=== PATIENT | female | born 1945 | race Hispanic/Latino ===

== ENCOUNTER → 2018-02-16 09:17 | Outpatient (CLI) | payer MEDICARE, SELFPAY ==
[2018-02-18 14:51] LABS: Mumps Virus IgM Antibody <1:20 (<1:20)
== END ==
PROVIDERS: Family Provider Family Medicine; PCP Family Medicine; Visit Provider Physician Assistant
DX: R60.9 Edema, unspecified (principal)
CPT/HCPCS: 86735; 87798

== ENCOUNTER → 2018-04-20 17:19 | Outpatient (CLI) | payer MEDICARE, SELFPAY | PROVIDERS: PCP Family Medicine; Visit Provider Family Medicine | DX: T14.8XXA Other injury of unspecified body region, initial encounter (principal) | CPT/HCPCS: 87070; 87077; 87147; 87186; 87205 ==

== ENCOUNTER → 2018-04-25 08:55 | Outpatient (CLI) | payer MEDICARE, SELFPAY | PROVIDERS: PCP Family Medicine; Referring Provider Family Medicine; Visit Provider Family Medicine | DX: I87.2 Venous insufficiency (chronic) (peripheral) (principal); L97.811 Non-pressure chronic ulcer of other part of right lower leg limited to breakdown of skin; L03.115 Cellulitis of right lower limb | CPT/HCPCS: 99202; 99212; 99213 ==

== ENCOUNTER → 2018-05-02 09:40 | Outpatient (CLI) | payer MEDICARE, SELFPAY | PROVIDERS: PCP Family Medicine; Visit Provider Family Medicine | DX: I87.2 Venous insufficiency (chronic) (peripheral) (principal); L97.811 Non-pressure chronic ulcer of other part of right lower leg limited to breakdown of skin | CPT/HCPCS: 11042; 99213 ==

== ENCOUNTER → 2018-05-02 10:40 | Outpatient (CLI) | payer MEDICARE, SELFPAY ==
--- NOTE | 2018-05-02 | DI.CT.S_ITS ---
PROCEDURE: CT SOFT TISSUE NECK WO/W CON INDICATIONS: Chronic sialoadenitis TECHNIQUE: Before and after the administration of intravenous contrast, 2.0 mm axial sections acquired through the neck and down to the edgar. Additional 2.0 mm coronal and sagittal reformats were generated of the contrast enhanced images. For radiation dose reduction, the following was used: automated exposure control. COMPARISON: None. FINDINGS: Image quality: Excellent. Salivary glands: Parotid glands are symmetric in size. Parotid glands demonstrate mildly heterogeneous attenuation on precontrast images. On post contrast images, prominent enhancing vessels are noted bilaterally. No masses or stones are identified. The left submandibular gland appears slightly larger than the right submandibular gland, which might be normal asymmetry. Submandibular glands demonstrate homogeneous attenuation on precontrast images, and mildly heterogeneous enhancement on postcontrast images. There is a 2 mm calcification in the right tongue base (series 2 image 33), and a couple of 3-4 mm calcifications in the area of the left tongue base (series 2 image 29 and 32), which may represent submandibular duct stones. There is no significant inflammatory stranding of the submandibular glands. No masses or abnormalities deep to the skin marker over the area of concern. Thyroid: Parenchyma is normal in size and enhancement. Lymph nodes: No enlarged lymph nodes seen throughout the neck. Small normal-sized cervical lymph nodes are likely reactive. Vessels: Visualized vasculature appears patent. Neck spaces: The oropharynx, nasopharynx, and pharynx demonstrate no mucosal lesions. The vocal cords, false vocal cords, pyriform sinuses, epiglottis, vallecula, and tongue base all appear normal. Extramucosal spaces appear unremarkable. Miscellaneous: Mild interstitial thickening in lung apices bilaterally. There is a small area of groundglass infiltrate in the left upper lobe. Bones: No suspicious bony lesions. Degenerative changes are noted in cervical spine. There is grade 1 anterolisthesis of C4 on C5. Visualized sinuses and mastoids appear unremarkable. IMPRESSION: 1. No masses or abnormalities deep to the skin marker over the area of concern. 2. Possible submandibular duct stones bilaterally. No inflammatory stranding involving submandibular currently. 3. Mild, symmetrically heterogeneous attenuation of parotid glands with mildly increased vascularity. 4. Mild interstitial thickening in lung apices bilaterally. There is a small area of groundglass infiltrate in the left upper lobe compatible with mild pneumonitis with pneumonia. Dictated by: Doug Coleman M.D. on 05/02/2018 at 15:15 Approved by: Doug Coleman M.D. on 05/03/2018 at 8:46
[2018-05-02 11:12] LABS: BUN Creatinine Ratio 21.7 (6-22); Blood Urea Nitrogen 13 mg/dL (7-17); Estimated Glomerular Filt Rate > 60.0 mL/min (>60)
== END ==
PROVIDERS: PCP Family Medicine; Visit Provider Otolaryngology
DX: K11.23 Chronic sialoadenitis (principal); R07.0 Pain in throat; I87.2 Venous insufficiency (chronic) (peripheral); L97.811 Non-pressure chronic ulcer of other part of right lower leg limited to breakdown of skin
CPT/HCPCS: 11042; 36415; 70492; 82565; 84520; Q9967

== ENCOUNTER → 2018-05-09 08:29 | Outpatient (CLI) | payer MEDICARE, SELFPAY | PROVIDERS: PCP Family Medicine; Visit Provider Podiatrist Primary Podiatric Medicine | DX: I87.2 Venous insufficiency (chronic) (peripheral) (principal); L97.811 Non-pressure chronic ulcer of other part of right lower leg limited to breakdown of skin | CPT/HCPCS: 97597 ==

== ENCOUNTER → 2018-05-16 09:27 | Outpatient (CLI) | payer MEDICARE, SELFPAY | PROVIDERS: PCP Family Medicine; Visit Provider Family Medicine | DX: I87.2 Venous insufficiency (chronic) (peripheral) (principal); L97.812 Non-pressure chronic ulcer of other part of right lower leg with fat layer exposed; M79.604 Pain in right leg | CPT/HCPCS: 97597; 99213 ==

== ENCOUNTER → 2018-05-23 08:43 | Outpatient (CLI) | payer MEDICARE, SELFPAY | PROVIDERS: PCP Family Medicine; Visit Provider Podiatrist Primary Podiatric Medicine | DX: I87.2 Venous insufficiency (chronic) (peripheral) (principal); L97.811 Non-pressure chronic ulcer of other part of right lower leg limited to breakdown of skin; M79.604 Pain in right leg | CPT/HCPCS: 11042; 99213 ==

== ENCOUNTER → 2018-05-30 08:35 | Outpatient (CLI) | payer MEDICARE, SELFPAY | PROVIDERS: PCP Family Medicine; Visit Provider Podiatrist Primary Podiatric Medicine | DX: I87.311 Chronic venous hypertension (idiopathic) with ulcer of right lower extremity (principal); L97.811 Non-pressure chronic ulcer of other part of right lower leg limited to breakdown of skin | CPT/HCPCS: 15271; 99213; Q4196 ==

== ENCOUNTER → 2018-06-06 08:39 | Outpatient (CLI) | payer MEDICARE, SELFPAY | PROVIDERS: PCP Family Medicine; Visit Provider Podiatrist Primary Podiatric Medicine | DX: L97.909 Non-pressure chronic ulcer of unspecified part of unspecified lower leg with unspecified severity (principal); I73.9 Peripheral vascular disease, unspecified | CPT/HCPCS: 15271; 99213; 99214; Q4196 ==

== ENCOUNTER → 2018-06-13 08:15 | Outpatient (CLI) | payer MEDICARE, SELFPAY | PROVIDERS: PCP Family Medicine; Visit Provider Podiatrist Primary Podiatric Medicine | DX: E11.622 Type 2 diabetes mellitus with other skin ulcer (principal); L97.812 Non-pressure chronic ulcer of other part of right lower leg with fat layer exposed; M79.604 Pain in right leg | CPT/HCPCS: 15271; 99213; Q4196 ==

== ENCOUNTER → 2018-06-20 08:55 | Outpatient (CLI) | payer MEDICARE, SELFPAY | PROVIDERS: PCP Family Medicine; Visit Provider Podiatrist Primary Podiatric Medicine | DX: I87.2 Venous insufficiency (chronic) (peripheral) (principal); L97.812 Non-pressure chronic ulcer of other part of right lower leg with fat layer exposed; M79.661 Pain in right lower leg | CPT/HCPCS: 11042; 87070; 87075; 87077; 87147; 87186; 87205 ==

== ENCOUNTER → 2018-06-27 08:25 | Outpatient (CLI) | payer MEDICARE, SELFPAY | PROVIDERS: PCP Family Medicine; Visit Provider Podiatrist Primary Podiatric Medicine | DX: I87.2 Venous insufficiency (chronic) (peripheral) (principal); L97.811 Non-pressure chronic ulcer of other part of right lower leg limited to breakdown of skin; R60.9 Edema, unspecified; L08.89 Other specified local infections of the skin and subcutaneous tissue | CPT/HCPCS: 97597 ==

== ENCOUNTER → 2018-07-11 08:49 | Outpatient (CLI) | payer MEDICARE, SELFPAY | PROVIDERS: PCP Family Medicine; Visit Provider Podiatrist Primary Podiatric Medicine | DX: I87.2 Venous insufficiency (chronic) (peripheral) (principal); L97.811 Non-pressure chronic ulcer of other part of right lower leg limited to breakdown of skin; M79.604 Pain in right leg | CPT/HCPCS: 93922; 99213 ==

== ENCOUNTER → 2018-07-18 08:36 | Outpatient (CLI) | payer MEDICARE, SELFPAY | PROVIDERS: PCP Family Medicine; Visit Provider Podiatrist Primary Podiatric Medicine | DX: I87.2 Venous insufficiency (chronic) (peripheral) (principal); L97.812 Non-pressure chronic ulcer of other part of right lower leg with fat layer exposed; M79.604 Pain in right leg | CPT/HCPCS: 97597 ==

== ENCOUNTER → 2018-07-20 09:15 | Outpatient (CLI) | payer MEDICARE, SELFPAY | PROVIDERS: PCP Family Medicine; Visit Provider Family Medicine | DX: I87.2 Venous insufficiency (chronic) (peripheral) (principal); L97.812 Non-pressure chronic ulcer of other part of right lower leg with fat layer exposed | CPT/HCPCS: 29581 ==

== ENCOUNTER → 2018-07-25 09:06 | Outpatient (CLI) | payer MEDICARE, SELFPAY | PROVIDERS: PCP Family Medicine; Visit Provider Podiatrist Primary Podiatric Medicine | DX: I87.2 Venous insufficiency (chronic) (peripheral) (principal); L97.811 Non-pressure chronic ulcer of other part of right lower leg limited to breakdown of skin | CPT/HCPCS: 97597 ==

== ENCOUNTER → 2018-08-01 09:32 | Outpatient (CLI) | payer MEDICARE, SELFPAY | PROVIDERS: PCP Family Medicine; Visit Provider Podiatrist Primary Podiatric Medicine | DX: I87.2 Venous insufficiency (chronic) (peripheral) (principal); L97.812 Non-pressure chronic ulcer of other part of right lower leg with fat layer exposed | CPT/HCPCS: 97597 ==

== ENCOUNTER → 2018-08-15 09:35 | Outpatient (CLI) | payer MEDICARE, SELFPAY | PROVIDERS: PCP Family Medicine; Visit Provider Podiatrist Primary Podiatric Medicine | DX: Z48.817 Encounter for surgical aftercare following surgery on the skin and subcutaneous tissue (principal); I73.9 Peripheral vascular disease, unspecified | CPT/HCPCS: 99213 ==

== ENCOUNTER → 2021-09-13 08:00 | Outpatient (CLI) | payer MEDICARE, SELFPAY ==
[2021-09-13 09:28] LABS: Add Manual Diff / Slide Review NO; Basophils Absolute Auto 100 /uL (0-100); Basophils Percent Auto 1.2 % (0-2); Eosinophils Absolute Auto 100 /uL (0-450); Eosinophils Percent Auto 1.9 % (2-4); Hematocrit 41.6 % (36-46); Hemoglobin 13.8 g/dL (12.0-16.0); Lymphocytes Absolute Auto 1400 /uL (1100-4500); Mean Corpuscular HGB Conc 33.3 % (30-36); Mean Corpuscular Hemoglobin 29.4 PG (26-34); Mean Corpuscular Volume 88.2 fL (80-100); Monocytes Absolute Auto 300 /uL (0-900); Neutrophils Absolute Auto 2900 /uL (1500-7000); Neutrophils Percent Auto 59.9 % (50-75); Platelet Count 238 X10^3/uL (150-400); Red Blood Cell Count 4.71 X10^6/uL (4.0-5.2); Red Cell Distribution Width 14.3 % (11.6-14.8); White Blood Cell Count 4.8 X10^3/uL (4.5-11.0)
[2021-09-13 10:00] LABS: BUN Creatinine Ratio 16.4 (6-22); Blood Urea Nitrogen 12 mg/dL (7-17); Calcium 8.9 mg/dL (8.4-10.2); Carbon Dioxide 28 mmol/L (22-32); Chloride 104 mmol/L (98-107); Cholesterol 214 mg/dL (140-199); Estimated Glomerular Filt Rate > 60 mL/min (>60); Glucose 92 mg/dL (80-110); HDL Cholesterol 45 mg/dL (40-60); HEMOLYSIS < 15 (0-50); LDL Cholesterol Calculated 147 mg/dL (<100); Sodium 137 mmol/L (137-145); Triglycerides 110 mg/dL (35-150)
[2021-09-15 09:15] LABS: Fecal Immunochemical Test Negative (Negative)
== END ==
PROVIDERS: PCP Family Medicine; Referring Provider Family Medicine; Visit Provider Family Medicine
DX: Z13.220 Encounter for screening for lipoid disorders (principal); Z12.11 Encounter for screening for malignant neoplasm of colon
CPT/HCPCS: 36415; 80048; 80061; 82274; 85025

== ENCOUNTER → 2022-02-11 07:56 | Outpatient (CLI) | payer MEDICARE, SELFPAY ==
[2022-02-11 09:11] LABS: Cholesterol 183 mg/dL (140-199); HDL Cholesterol 46 mg/dL (40-60); LDL Cholesterol Calculated 104 mg/dL (<100); Triglycerides 163 mg/dL (35-150)
== END ==
PROVIDERS: PCP Family Medicine; Referring Provider Family Medicine; Visit Provider Family Medicine
DX: E78.00 Pure hypercholesterolemia, unspecified (principal)
CPT/HCPCS: 36415; 80061

== ENCOUNTER 2022-07-04 03:59 | Observation (INO) | payer MEDICARE, SELFPAY ==
--- NOTE | 2022-07-04 04:02 | DI.RAD.S_ITS ---
PROCEDURE: XR FOOT LT MIN 3V INDICATIONS: pain and swelling TECHNIQUE: Three views of the foot were acquired. COMPARISON: None. FINDINGS: Bones: Decreased mineralization. Mildly impacted, minimally displaced fractures of the 2nd, 3rd and 4th metatarsal necks. Hammertoe deformity of the 5th digit. Fifth metatarsal fracture is difficult to exclude. Plantar calcaneal spur and minor Achilles enthesopathy. Soft tissues: Moderate dorsal soft tissue swelling over the forefoot. No radiodense foreign bodies. IMPRESSION: 1. Metatarsal neck fractures of the 3rd and 4th and likely 2nd and 5th as well. 2. Decreased mineralization. Dictated by: Christel Sue M.D. on 07/04/2022 at 9:54 Approved by: Christel Sue M.D. on 07/04/2022 at 9:57
--- NOTE | 2022-07-04 04:02 | DI.RAD.S_ITS ---
PROCEDURE: XR ANKLE LT MIN 3V INDICATIONS: pain and swelling TECHNIQUE: 3 views of the ankle were acquired. COMPARISON: None. FINDINGS: Bones: Decreased mineralization. Spiral distal fibular fracture at the level of the syndesmosis. There is a small amount of lateral displacement. Ankle mortise remains intact. Small plantar calcaneal spurs are present. Enthesopathy at the Achilles insertion. Soft tissues: Small tibiotalar joint effusion. Achilles tendon is normal. IMPRESSION: 1. Mildly displaced distal fibular fracture. 2. Final interpretation is concordant with preliminary report. Dictated by: Christel Sue M.D. on 07/04/2022 at 9:53 Approved by: Christel Sue M.D. on 07/04/2022 at 9:54
[2022-07-04 04:05] VITALS: BP 210/96; PULSE 102; RESP 20; TEMP 36.9; O2SAT 98; BMI 20.3
--- NOTE | 2022-07-04 04:08 | DI.RAD.S_ITS ---
PROCEDURE: XR KNEE LT 1TO2V INDICATIONS: pain and swelling TECHNIQUE: Two views of the knee were acquired. COMPARISON: None. FINDINGS: Bones: No fractures or dislocations. Decreased mineralization No suspicious bony lesions. Soft tissues: No joint effusion. No suspicious soft tissue calcifications. IMPRESSION: Intact left knee. Final interpretation is concordant with preliminary report. Dictated by: Christel Sue M.D. on 07/04/2022 at 9:57 Approved by: Christel Sue M.D. on 07/04/2022 at 9:57
--- NOTE | 2022-07-04 04:08 | ED.GENADULT ---
HPI - General Adult General Chief complaint: Extremity Problem,Nontraumatic Stated complaint: Left foot pain Time Seen by Provider: 07/04/22 03:59 Source: patient Mode of arrival: EMS Limitations: no limitations History of Present Illness HPI narrative: Patient is a 77-year-old female who is here for evaluation of left foot ankle and knee discomfort. She states that it really started hurting approximately 24 hours ago but then got worse last night. 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 This did cause her to fall. She did not hit her head. She denies any specific injury to her foot and ankle. States it was swollen and bruised. Apparently she was able to walk on it yesterday. Has not tried anything for the symptoms prior to arrival. Related Data Home Medications Medication Instructions Recorded Confirmed No Known Home Medications 10/16/21 02/17/22 Allergies Allergy/AdvReac Type Severity Reaction Status Date / Time AMOXICILLIN Allergy Mild RASH Uncoded 02/17/22 13:49 NEOMYCIN Allergy Mild RASH Uncoded 02/17/22 13:49 Review of Systems Constitutional Constitutional: Reports system reviewed and no additional complaints, except as documented Cardiovascular Cardiovascular: Reports system reviewed and no additional complaints, except as documented Musculoskeletal Musculoskeletal: Reports system reviewed and no additional complaints, except as documented Integumentary/Breasts Skin/Breast: Reports system reviewed and no additional complaints, except as documented Neurologic Neurologic: Reports system reviewed and no additional complaints, except as documented Hematologic/Lymphatic On Anticoagulants: No Patient History Medical History Abdominal wall hernia (Unknown) Asthma (Unknown) Fractures (~1997) Grief Heart murmur (1953) Hemorrhoids (Unknown) Measles (1953) Migraines (Unknown) Osteopenia (~2006) Osteoporosis (~1999) Physician orders for life-sustaining treatment (POLST) form indicates patient wish for [id number] status Pure hypercholesterolemia Rheumatic fever (1953) Stress Surgical History History of tonsillectomy (1949) Soft tissue injury of wrist (11/1980) Status post tubal ligation (1968) Family History (Updated 09/23/17 @ 18:10 by Analilia Beckett LPN) Father Diabetes mellitus Mother No problems noted. Brother Cancer Family/Other No problems noted. Grandfather No problems noted. Grandmother No problems noted. Grandfather No problems noted. Grandmother No problems noted. Social History Smoking Status: Never smoker alcohol intake: current Smoking Status: Never smoker Exam Initial Vital Signs Initial Vital Signs: Vital Signs Temperature 98.5 F 07/04/22 04:05 Pulse Rate 102 H 07/04/22 04:05 Respiratory Rate 20 07/04/22 04:05 Blood Pressure 210/96 H 07/04/22 04:05 Pulse Oximetry 98 07/04/22 04:05 Oxygen Delivery Method Room Air 07/04/22 04:05 Const General: cooperative and No ill appearing HENMT Head: normal to inspection Resp Effort & Inspection: normal respiratory effort Cardio Rate: regular rate Skin Other: Bruising and swelling to the left ankle and left foot. Small abrasion over the anterior left knee. Neuro Sensory Exam: no sensory deficits noted Extrem Other: Fairly extensive discomfort to the lateral dorsum of the left foot. No tenderness over the Lisfranc joint. Does have tenderness over the ankle however is able to flex and extend. Also tenderness around the left knee but is able to bend her left knee. Course Orders Ordered: ED Orders 07/04/22 04:02 XR ankle LT min 3V Stat XR foot LT min 3V Stat 07/04/22 04:08 XR knee LT 1to2V Stat 07/04/22 05:00 Basic Metabolic Panel Stat Complete Blood Count AUTO DIFF Stat Discontinued Medications Hydrocodone Bitart/Acetaminophen (Hydrocodone/Acet 5/325 Tablet) 1 tab PO NOW ONE Stop: 07/04/22 04:21 Last Admin: 07/04/22 04:25 Dose: 1 tab Documented By: LISBETH Vital Signs Vital signs: Vital Signs - 8 hr 07/04/22 04:05 Temperature 98.5 F Pulse Rate 102 H Respiratory Rate 20 Blood Pressure 210/96 H Pulse Oximetry 98 Oxygen Delivery Method Room Air Medical Decision Making Lab Data 07/04/22 05:00 07/04/22 05:00 [facility] Narrative Medical decision making narrative: Patient does have bruising and swelling to the left foot and left ankle. X-ray show a distal fibula fracture. She also has fractures of the lateral distal metatarsals. Her left knee x-ray is unremarkable. Given the fact that she does have metatarsal fracture she does need to be nonweightbearing. Patient was unable to stand at bedside secondary to discomfort. She was unable to use crutches because of weakness and discomfort as well. This was despite pain medication given here in the emergency department. Secondary to her injuries in the inability to stand patient does require admission to the hospital. Discussed the case with the LABOR CONTRACT ANALYST Beau in the night hospitalist who will admit for further evaluation and treatment. Discharge Plan Departure Patient Disposition: Admitted as Observation Clinical Impression: Fibula fracture, Metatarsal fracture Admit Date/Time: 07/04/22 04:54 Admit Provider: Yen Yanez
[2022-07-04 04:12] VITALS: BMI 20.3
[2022-07-04] MEDS: HYDROCODONE/ACET 5/325 TABLET 1 TAB PO ×2 (04:25→06:27)
[2022-07-04 05:09] VITALS: BMI 20.3
[2022-07-04 05:12] LABS: Add Manual Diff / Slide Review NO; Basophils Absolute Auto 100 /uL (0-100); Basophils Percent Auto 0.6 % (0-2); Eosinophils Absolute Auto 0 /uL (0-450); Eosinophils Percent Auto 0.1 % (2-4); Hematocrit 43.6 % (36-46); Hemoglobin 14.9 g/dL (12.0-16.0); Lymphocytes Absolute Auto 800 /uL (1100-4500); Lymphocytes Percent Auto 9.2 % (25-40); Mean Corpuscular HGB Conc 34.3 % (30-36); Mean Corpuscular Hemoglobin 30.3 PG (26-34); Mean Corpuscular Volume 88.3 fL (80-100); Monocytes Absolute Auto 500 /uL (0-900); Monocytes Percent Auto 5.7 % (3-14); Neutrophils Absolute Auto 7700 /uL (1500-7000); Neutrophils Percent Auto 84.4 % (50-75); Platelet Count 220 X10^3/uL (150-400); Red Blood Cell Count 4.94 X10^6/uL (4.0-5.2); White Blood Cell Count 9.1 X10^3/uL (4.5-11.0)
[2022-07-04 05:18] LABS: Blood Urea Nitrogen 9 mg/dL (7-17); Calcium 8.5 mg/dL (8.4-10.2); Carbon Dioxide 27 mmol/L (22-32); Chloride 100 mmol/L (98-107); Estimated Glomerular Filt Rate > 60 mL/min (>60); Glucose 115 mg/dL (80-110); HEMOLYSIS < 15 (0-50); Potassium 3.9 mmol/L (3.4-5.1); Sodium 134 mmol/L (137-145)
--- NOTE | 2022-07-04 05:25 | P.HP_ITS ---
History of Present Illness History of Present Illness Date Patient Seen: 07/04/22 Time Patient Seen: 05:25 Chief complaint: Left Fibula fx, metatarsal fx's x 2 left foot Narrative: Nargsi Acevedo is a 77-year-old female with medical history osteopenia/osteoporosis, takes no medications, presented to the ED this morning after developing left foot swelling and knee pain that started about 24 hours ago and continued to worsen causing her to present to the ED. patient states she may have fallen going to the bathroom a few days ago but denies any real trauma or injury. On admit patient denies chest pain, shortness in breath, headache, changes in vision, difficulty swallowing, speech impairment, numbness, tingling, head injury, LOC, fever, body aches, chills, cough, recent exposure to illness, abdominal pain, nausea, vomiting, urinary incontinence/retention, dysuria, frequency, urgency, hematuria, bowel changes, constipation, incontinence, melena, rashes, recent changes to medication, illness, injury, or trauma. Patient presented to the ED with hypertensive urgency 210/96, 180/90, initial labs CBC/CMP are unremarkable. Patient does have bruising and swelling to the left foot and left ankle.? X-ray show a distal fibula fracture.? She also has fractures of the lateral distal metatarsals.? Her left knee x-ray is unremarkable.? Given the fact that she does have metatarsal fracture she does need to be nonweightbearing.? Patient was unable to stand at bedside secondary to discomfort.? She was unable to use crutches because of weakness and discomfort as well.? Patient is also extremely emotional and anxious, lost her last fall. Admitted for observation and evaluation by Ortho. [facility] Medical History Abdominal wall hernia (Unknown) Asthma (Unknown) Fractures (~1997) Grief Heart murmur (1953) Hemorrhoids (Unknown) Measles (1953) Migraines (Unknown) Osteopenia (~2006) Osteoporosis (~1999) Physician orders for life-sustaining treatment (POLST) form indicates patient wish for [id number] status Pure hypercholesterolemia Rheumatic fever (1953) Stress Surgical History History of tonsillectomy (1949) Soft tissue injury of wrist (11/1980) Status post tubal ligation (1968) Family History Father Diabetes mellitus Mother No problems noted. Brother Cancer Family/Other No problems noted. Grandfather No problems noted. Grandmother No problems noted. Grandfather No problems noted. Grandmother No problems noted. Social History household members: none Smoking Status: Never smoker alcohol intake: current Meds Home Medications and Allergies Home Medications Medication Instructions Recorded Confirmed Type No Known Home Medications 10/16/21 02/17/22 History Allergies Allergy/AdvReac Type Severity Reaction Status Date / Time amoxicillin Allergy Mild Rash Verified 07/04/22 06:33 neomycin Allergy Mild Rash Verified 07/04/22 06:33 Review of Systems Review of Systems Narrative: All 12 point systems reviewed with the patient and are negative except otherwise documented. Exam Vital Signs (past 8 hours): - 07/04/22 04:05 Temperature 98.5 F Pulse Rate 102 H Respiratory Rate 20 Blood Pressure 210/96 H Pulse Oximetry 98 Oxygen Delivery Method Room Air Oxygen Delivery Method Room Air Narrative Exam Narrative: General: Patient is a thin appearing elderly female, quite anxious and emotional, tearful in no acute distress at this time. HEENT: Normocephalic, atraumatic, extraocular muscles intact, oral pharynx is clear and mucous membranes are dry. Neck is supple and symmetric, trachea is midline, no adenopathy, no thyroid enlargement, nontender, no masses palpated. Negative for JVD Chest: Normal AP diameter and contour without kyphoscoliosis, no nasal flaring, retractions, or tachypneic labored breathing Lungs: Auscultation of all lung henning are clear without adventitious sounds, wheezes, rhonchi, or rales. Cardio: regular rate and rhythm without murmur, rubs, or gallops, no carotid bruit, no cardiac pulsations present. Abdomen: Soft nontender, negative for organomegaly, or masses. Bowel sounds are present in all 4 quadrants without guarding or rebound, no CVA tenderness. Musculoskeletal: Muscle strength and tone are equal within normal limits, no deformity, crepitus, effusions, cyanosis, clubbing or edema present. Full range of motion intact radial and pedal pulses are normal. Left leg: Fairly extensive discomfort to the lateral dorsum of the left foot.? No tenderness over the Lisfranc joint.? Does have tenderness over the ankle however is able to flex and extend.? Also tenderness around the left knee but is able to bend her left knee. Skin: Warm dry and intact without rashes, ulcerations or petechiae. Bruising and swelling to the left ankle and left foot.? Small abrasion over the anterior left knee. Neuro: Alert and orientated x3, sensation to touch intact, no gross deficits noted of cranial nerves. Psych: Patient has a well-kept appearance, appropriate affect, mental status attitude thought context and judgment are appropriate for age. Objective Labs 07/04/22 05:00 07/04/22 05:00 Labs: Laboratory Results - last 24 hr 07/04/22 07/04/22 05:00 05:00 WBC 9.1 RBC 4.94 Hgb 14.9 Hct 43.6 MCV 88.3 MCH 30.3 MCHC 34.3 RDW 14.0 Plt Count 220 Neut % (Auto) 84.4 H Lymph % (Auto) 9.2 L Ulster % (Auto) 5.7 Eos % (Auto) 0.1 L Baso % (Auto) 0.6 Neut # (Auto) 7700 H Lymph # (Auto) 800 L Ulster # (Auto) 500 Eos # (Auto) 0 Baso # (Auto) 100 Sodium 134 L Potassium 3.9 Chloride 100 Carbon Dioxide 27 BUN 9 Creatinine 0.50 L Estimated GFR > 60 BUN/Creatinine Ratio 18.0 Glucose 115 H Calcium 8.5 Assessment & Plan Assessment & Plan narrative: Nargis Acevedo is a 77-year-old female with medical history osteopenia/osteoporosis, takes no medications, Admitted for observation for a distal fibula fracture and fractures of the lateral distal metatarsals.? Patient is unable to weightbear, or use crutches, orthopedic evaluation and WHEY DEPARTMENT OPERATOR consult. Ground level fall resulting in pathological fractures of distal fibula left, lateral left distal metatarsals x2, acute, present on admission * Medical history of osteoporosis/osteopenia * Patient unable to weightbear or manage crutches will need evaluation for possible placement, or in-home support services. * Orthopedic consult Dr. Jose R kaiser- Dr. Mcwilliams will notify * Conservative pain management, medication, ice, elevation * PT OT and WHEY DEPARTMENT OPERATOR consult Hypertensive urgency without the diagnosis of hypertension, acute, present on admission * Likely secondary to patient's pain * ED: 210/96, 180/90 * We will continue to monitor and manage patient's pain and anxiety Malnutrition,moderate, acute on chronic, present on admission * BMI 20 * Likely secondary to grief patient's spouse last fall, internal family conflicts with stress * patient's malnutrition places them at high risk for medical and surgical complications in relation to acute illness/chronic illness. This increases the difficulty in complexity of medical management and increases the chances poor outcomes such as mortality and morbidity as well as impaired wound healing, and immune suppression. * dietary consult ordered to evaluate and implement steps to improve caloric intake and nutrition. Grief, acute on chronic, present on admission * Patient is still grieving the loss of her spouse last fall * Ordered social work/WHEY DEPARTMENT OPERATOR/pastoral consult * Ativan for anxiety prn Code status: DNR DNI Surrogate decision maker: Bob Ramirez DVT/VTE prophylaxis: Lovenox and SCDs on Right only Disposition: Patient to be evaluated by ortho, and WHEY DEPARTMENT OPERATOR consult to determine plan of care following discharge as patient is unable to weightbear. I have utilized all available immediate resources to obtain, update, or review the patient's current medications. I confirmed that the patient's advanced care plan is present, Code status is documented and/or surrogate decision maker is listed in the patient's medical record. I have personally reviewed patient's chart notes from PCP, specialists, diagnostic imaging, and laboratory results. .
[2022-07-04 05:37] LABS: Magnesium 1.9 mg/dL (1.6-2.3)
[2022-07-04 05:55] VITALS: BP 183/95; PULSE 95; RESP 20; TEMP 36.7; O2SAT 98
[2022-07-04] MEDS: LORazepam 0.5 MG TABLET PO (06:40)
[2022-07-04] MEDS: ACETAMINOPHEN 325 MG TABLET 650 MG PO (07:56)
[2022-07-04] MEDS: LIDOCAINE PATCH 1 EACH ADH..PATCH TOP (07:56)
[2022-07-04 08:00] VITALS: BP 191/90; PULSE 81; RESP 17; TEMP 36.7; O2SAT 95
[2022-07-04] MEDS: ENOXAPARIN 40 MG/0.4 ML SYRINGE SUBCUT (08:04)
--- NOTE | 2022-07-04 10:10 | PT.IIE ---
Surgical History (Last Reviewed 07/04/22 @ 05:[address] [facility]) History of tonsillectomy (1949) Soft tissue injury of wrist (11/1980) Status post tubal ligation (1968) Medical History (Last Reviewed 07/04/22 @ 05:30 [facility] Abdominal wall hernia (Unknown) Asthma (Unknown) Fractures (~1997) Grief Heart murmur (1953) Hemorrhoids (Unknown) Measles (1953) Migraines (Unknown) Osteopenia (~2006) Osteoporosis (~1999) Physician orders for life-sustaining treatment (POLST) form indicates patient wish for [id number] status Pure hypercholesterolemia Rheumatic fever (1953) Stress Physical Therapy Inpatient Evaluation/Re-Eval M1 PT/OT-IP Prior Functional Status Start: 07/04/22 11:03 Freq: NEEDED Status: Active Protocol: Document 07/04/22 10:10 AB (Rec: 07/04/22 11:17 AB [id number]) Medical Review Prior Functional Status Medical History Reviewed Yes Communication able to make needs known Mobility and Gait pt stated that she is modified independent with all mobilities and ambulation without AD Prior Functional Level (Other details) pt stated that he has on/off leg cramps for ~ 6 months and due to leg cramps, she fell. pt currently admitted for L fibular fx as well as metatarsal fx. per hospitalist, pt is not a surgical candidate and is NWB on LLE. Pt also has a walker boot order in placed. Social History Household Members none Living Arrangements House Number of Floors (Floors) One Floor Number of Stairs To Enter/Railing? ramp to enter Home Environment Standard Height Toilet,Tub/ Shower,Ramp Home Equipment Front Wheel Walker,Straight Cane,Manual Wheelchair,Raised Toilet Seat Without Armrests, Shower Seat without Backrest, Hand Held Shower Additional Social History Comment pt also has a UP walker M2 PT-IP Current Condition Start: 07/04/22 11:03 Freq: NEEDED Status: Active Protocol: Document 07/04/22 10:10 AB (Rec: 07/04/22 11:17 AB [email or web address]) Physical Therapy Current Condition Current Condition Evaluation Date 07/04/22 Treatment Diagnosis L distal fibular fx; L metatarsal fx; difficulty in walking Onset Date 07/04/22 M3 PT-IP Subjective Start: 07/04/22 11:03 Freq: NEEDED Status: Active Protocol: Document 07/04/22 10:10 AB (Rec: 07/04/22 11:17 AB [id number]) Subjective Physical Therapy Visit Type Type Initial Evaluation Visit Start Time 10:10 Visit Stop Time 10:50 Total Visit Minutes 40 Number of STEWARD/STEWARDESS CHIEF CARGO VESSEL Visits 0 Physical Therapy Visit Comments Patient Comments agreeable to do PT Therapy Pain Assessment Pain When Pain Assessed At Rest Location Right Calf Intensity 8 Scale Used Numeric (0 - 10) Description Cramping,Spasm Pain Behaviors Facial Grimacing,Guarding, Holding Area,Moaning, Restlessness,Wincing Pain Management Techniques Distraction,Modification of Treatment,Re-positioning M4 PT-IP Mobility and Gait Start: 07/04/22 11:03 Freq: NEEDED Status: Active Protocol: Document 07/04/22 10:10 AB (Rec: 07/04/22 11:17 [email or web address]) PT-Bed Mobility Assessment Supine to Sit Supine to Sit Standby Assistance PT-Transfer Assessment Sit to and From Stand Sit to and from Stand Maximum Assistance,1 Person Assistance,2 Person Assistance ,Use of Upper Extremities Equipment Transfer Assistive Device Gait Belt,Front Wheeled Walker Orthotic/Prosthetic Devices or Brace: Yes Transfers Transfer Destination Chair Transfer Technique Stand Pivot Transfer Ability Level of Assist Maximum Assistance,1 Person Assistance,2 Person Assistance ,Use of Upper Extremities Comments Mobility Comments educated pt on LLE weight bearing restriction of NWB and use of walker boot. Pt understood. pt completed supine to sit SBA . able to sit on EOB SBA. completed sit to stand from EOB max A x 1-2 and max cues and able to stand using FWW mod A and cues for NWB on LLE. completed stand pivot transfer using FWW to chair max A x 1-2 and max cues. nurse in room to assist as needed. positioned pt in bed. call light and table placed within reach. Gait Assessment Comments Gait Comments unable at this time PT-Balance Assessment Sitting Balance and Reactions Static Sitting Balance Ability Normal Dynamic Sitting Balance Ability Good Standing Balance and Reactions Static Standing Balance Ability Poor Dynamic Standing Balance Ability Poor Device Used FWW M5 PT-IP Objective Assessments Start: 07/04/22 11:03 Freq: NEEDED Status: Active Protocol: Document 07/04/22 10:10 AB (Rec: 07/04/22 11:17 AB [email or web address]) Orientation Orientation/Cognition Level of Alertness Alert Orientation Name,Place,Situation Safety Awareness Decreased Safety Awareness Memory Description Short Term Impaired Gross Range of Motion Lower Extremity ROM Assessment Within Functional Limits Impairments L ankle NT Strength Lower Extremity Strength Assessment Left Impaired Knee 3+/5 Ankle NT Sensation Assessment Sensation Gross Sensation WNL Muscle Tone Muscle Tone WNL Yes M6 PT-IP Treatment Start: 07/04/22 11:03 Freq: NEEDED Status: Active Protocol: Document 07/04/22 10:10 AB (Rec: 07/04/22 11:17 AB [email or web address]) Physical Therapy Treatment Education Education Provided Precautions,Weight Bearing Status,Safety M7 PT-IP Assessment and Plan Start: 07/04/22 11:03 Freq: NEEDED Status: Active Protocol: Document 07/04/22 10:10 AB (Rec: 07/04/22 11:17 AB [email or web address]) PT Summary Assessment and Plan Potential Rehabilitation Potential Fair Status of Condition at Evaluation Evolving Summary Impairments Pain,ROM,Strength,Balance, Coordination,Sensation,Tone, Cognition,Bed Mobility, Transfers,Gait,Activity Tolerance Assessment Summary Pt stated that she fell due to her calves spasms. pt sustained a L fibular fx and metatarsal fx and is not a surgical candidate per hospitalist. pt has walker boot in placed and is NWB on LLE. pt requiring max A x 1-2 for transfers using FWW and unable to ambulate at this time. Crutch training order by MD but pt is not appropriate to use crutches at this time due to weakness and decrease steadiness. pt will require use of a w/c for mobility and will need 24/7 assist at home. Pt lives alone. at this time, pt will require SNF rehab to improve overall strength and mobility independence. Goals Bed Mobility Goal Independent Transfer Goal Minimal Assistance,Front Wheeled Walker Gait Goal Minimal Assistance,Front Wheel Walker Gait Distance 25 Other Goals improve transfers using FWW SBA, ambulation using FWW 40 ft SBA Days to Meet Goals 10 Frequency of Treatment Frequency Of Treatment Once a Day Treatment Plan Physical Therapy Treatment Plan Bed Mobility Training,Transfer Training,Gait Training, Therapeutic Exercise,Balance Retraining,Discharge Planning, Hot or Cold Pack,Neuromuscular Re-ed,Coordination Retraining ,Manual Therapy Precautions Brace L walker boot Other Precautions falls Weight Bearing Status Weight Bearing Status Non-Weight Bearing Allowed Weight Bearing Amount (enter % LLE NWB or #) (%) Recommendations To Nursing Amount of Assist Needed 2 Person Assist Discharge Recommendations PT Discharge Recommendations SNF Rehab,Home vs SNF Transportation Needs at Discharge Wheelchair/Cabulance
[2022-07-04 10:28] LABS: Appearance Urine UA CLEAR; Bilirubin Urine UA NEGATIVE (NEGATIVE); Color Urine UA YELLOW; Glucose Urine UA NEGATIVE (Negative); Ketones Urine UA 2+ (NEGATIVE); Leukocyte Esterase Urine UA NEGATIVE (NEGATIVE); Nitrite Urine UA NEGATIVE (Negative); Occult Blood Urine UA TRACE-INTACT (Negative); Protein Urine UA NEGATIVE (Negative); Specific Gravity Urine UA 1.015 (1.000-1.035); Urobilinogen Urine UA 0.2 E.U./dL (0.2)
[2022-07-04] MEDS: methocarbamoL 500 MG TABLET 750 MG PO (10:41)
[2022-07-04 10:42] LABS: pH Urine UA 6.5 (4.5-8.0)
[2022-07-04] MEDS: SODIUM CHLORIDE 0.9% 1,000 ML 100 ML IV (10:43)
[2022-07-04 10:54] LABS: RBC Urine 0-1/HPF (0-5/HPF); Squamous Epithelial Cell Urine 0-1 /HPF (0-5/HPF); WBC Urine 0-1/HPF (0-5/HPF)
[2022-07-04 10:55] LABS: Bacteria Urine Occasional (0-1); Culture Indicated Urine Cult Not Indicated
[2022-07-04 11:23] VITALS: BP 164/89; PULSE 87; RESP 18; TEMP 36.7; O2SAT 96
--- NOTE | 2022-07-04 14:19 | CM.DANOTE ---
Initial DCP Assessment Note Patient is a 77 yo female, resident of [place], presents after a fall at home w/subsequent left fib fx and metatarsal fractures, non operable fractures PCP Mckinley Herrera [facility] Met w/patient to introduce self and role. Patient is tearful throughout visit, emotionally labile but overall communicating well, A+Ox4. Patient reviews the loss of two of her children and then the loss of her last year. patient had tried one counselor and felt it did not help her so stopped going Reviewed DCP; explained the difference between observation and inpatient as it relates to [facility] SNF benefit Patient explains she does not have the money to pay privately for services or SNF. Reviewed plan for home- patient will ask son to take her home and assist on Wednesday when he becomes available. In addition, friend from [employer] can travel Wednesday evening or Wednesday, likely, to assist patient in her recovery Patient indp and active at baseline, admits things have been very difficult since the of her Reviewed agency options via IPAD and patient chooses [facility] PT currently recommending SNF however patient remains OBS and cannot pay privately. Emailed referral to [facility] included demo sheet, F2F, order, H+P Plan: Anticipated discharge Wednesday, home w/family and friend to assist, [facility] services- RN/PT/OT/SHANNA [place] Discharge Planning/Care Management Discharge Assessment Start: 07/04/22 13:59 Freq: Status: Active Protocol: Document 07/04/22 14:00 KARENA (Rec: 07/04/22 14:16 KARENA [id number]) Discharge Planning Assessment Assigned Risk Control Director SHANNA Pinto DPOA/Assigned Designee Name Avila Hogan, rani ([place]) Contact Information [phone] Advance Directives? No History Provided By Patient Prior Living Arrangements House Household Members none Type of transporation used prior to Drives own vehicle admit Independent with ADL's Yes Is patient alert and oriented? Yes Patient/Family Preference Home with Home Health Barriers to Discharge Yes Comment Patient cannot tolerate ambulation today per PT, hopeful patient will improve enough over the next 48 hours to return home w/son to assist . Patient says she has a walker at home. Unsure whether patient has a wheelchair ? Discharge Plan Home with Home Health Transportation Arrangement son Referrals Initiated Home Health Additional Comment Referral to [facility] completed Medicare Choice List Provided Yes Medicare choice list reviewed on patient electronic tablet with SNF/HH Preference Leo ANDRES
--- NOTE | 2022-07-04 16:13 | PM.EVENT ---
Event Note Event Note (Rapid Response, Code, or fall): 77-year-old female with osteopenia / osteoporosis, asthma, hyperlipidemia, remote rheumatic fever who was admitted with a mildly displaced distal left fibular fracture and metatarsal neck fractures of the 3rd, 4th, and likely 2nd and 5th Metatarsals of the left foot. she was admitted for evaluation for orthopedic surgery as well as therapy assessments. Subjective: Pt c/o ongoing leg pain. Robaxin ordered this am has been helpful for spasms. Her po intake this am was not good, and IVF were started. This afternoon, she reports she is doing a better job w/fluid intake. She reports she is urinating well since the IV fluids were added. Her son is coming down on July 06 and will be taking care of her at discharge. objective: GEN: Alert and oriented x 3, NAD HEENT:NC, Face symmetric CHEST: Respiratory excursions symmetric, CTAB CV: RRR, no M/R/G ABD: Soft, NT/ND, BT present in all 4 quadrants, no organomegaly or masses EXTR: warm, well perfused, no C/C/E SKIN: warm and dry, no rash NEURO: Alert and oriented x 3, nonfocal Assessment/plan: 1. Left fibular and left foot metatarsal fractures after ground level fall PT evaluation done today with recommendation for sniff rehab versus home. Patient was admitted under observation status and can not privately pay for SNF placement. Social work consultation was performed and patient can go home with family and friend to assist as well as home health services. I did contact Dr. Odell, on-call for Orthopedic surgery and he will consult tomorrow. 2. Ground level fall secondary to gait instability Will benefit from home health PT and OT to improve her strength and stability 3. Hypertension Patient does not take any regularly scheduled medications. blood pressure is overall improved in the 160s systolic. Will follow. 4. Malnutrition BMI is 20.5. There is no specific documentation to poor oral intake or weight loss. Does not appear to meet malnutrition criteria. 5. Osteopenia versus osteoporosis Will need outpatient DEXA scan. 6. Asthma No regular medications prescribed. No exacerbation. code status DNR DNI prophylaxis Lovenox disposition Home on 07/06/2022 with [employer].
[2022-07-04 17:47] VITALS: BP 178/91; PULSE 87; RESP 15; TEMP 36.9; O2SAT 96
[2022-07-04] MEDS: SENNOSIDES 8.6 MG TABLET 17.2 MG PO (20:20)
[2022-07-05] VITALS (9 sets, daily range): BP systolic 150–187; BP diastolic 89–104; PULSE 85–111; RESP 18–20; TEMP 36.4–37.2; O2SAT 95–96
[2022-07-05] MEDS: SODIUM CHLORIDE 0.9% 1,000 ML 100 ML IV (00:02)
[2022-07-05 05:03] LABS: BUN Creatinine Ratio 11.6 (6-22); Blood Urea Nitrogen 5 mg/dL (7-17); Calcium 8.6 mg/dL (8.4-10.2); Carbon Dioxide 26 mmol/L (22-32); Chloride 101 mmol/L (98-107); Estimated Glomerular Filt Rate > 60 mL/min (>60); Glucose 113 mg/dL (80-110); HEMOLYSIS < 15 (0-50); Potassium 3.4 mmol/L (3.4-5.1); Sodium 131 mmol/L (137-145)
[2022-07-05 05:05] LABS: Add Manual Diff / Slide Review NO; Basophils Absolute Auto 100 /uL (0-100); Basophils Percent Auto 0.7 % (0-2); Eosinophils Absolute Auto 0 /uL (0-450); Eosinophils Percent Auto 0.2 % (2-4); Hematocrit 43.8 % (36-46); Hemoglobin 14.9 g/dL (12.0-16.0); Lymphocytes Absolute Auto 1300 /uL (1100-4500); Mean Corpuscular HGB Conc 34.1 % (30-36); Mean Corpuscular Hemoglobin 30.1 PG (26-34); Mean Corpuscular Volume 88.3 fL (80-100); Monocytes Absolute Auto 500 /uL (0-900); Neutrophils Absolute Auto 5600 /uL (1500-7000); Neutrophils Percent Auto 75.1 % (50-75); Platelet Count 201 X10^3/uL (150-400); Red Blood Cell Count 4.95 X10^6/uL (4.0-5.2); Red Cell Distribution Width 13.7 % (11.6-14.8); White Blood Cell Count 7.4 X10^3/uL (4.5-11.0)
[2022-07-05] MEDS: polyethylene glycoL 3350 17 GM POWD.PACK PO (08:32)
[2022-07-05] MEDS: ACETAMINOPHEN 325 MG TABLET 650 MG PO (08:32)
[2022-07-05] MEDS: LORazepam 0.5 MG TABLET PO (08:33)
[2022-07-05] MEDS: SENNOSIDES 8.6 MG TABLET 17.2 MG PO (08:33)
[2022-07-05] MEDS: ENOXAPARIN 40 MG/0.4 ML SYRINGE SUBCUT (08:33)
[2022-07-05] MEDS: POTASSIUM CHLORIDE 20 MEQ TAB 40 MEQ PO (08:36)
--- NOTE | 2022-07-05 10:16 | P.CONS_ITS ---
History of Present Illness Consult details Date Patient Seen: 07/05/22 Time Patient Seen: 10:17 Chief complaint: Left Fibula fx, metatarsal fx's x 2 left foot Reason for consult: left ankle pain Requesting provider: Yen Yanez Narrative: Ms. Acevedo is a 77 yo F who sustained a fall to her left leg. She has worsening pain after the fall. Work up shows left distal fibula and multiple metatarsal fracture. Orthopedic service was consulted. Meds Home Medications and Allergies Home Medications Medication Instructions Recorded Confirmed Type No Known Home Medications 10/16/21 02/17/22 History Allergies Allergy/AdvReac Type Severity Reaction Status Date / Time amoxicillin Allergy Mild Rash Verified 07/04/22 06:33 neomycin Allergy Mild Rash Verified 07/04/22 06:33 Exam Vital Signs (past 8 hours): - 07/05/22 05:14 Temperature 98.4 F Pulse Rate 87 Respiratory Rate 20 Blood Pressure 186/94 H Pulse Oximetry 96 Oxygen Flow Rate 0 Oxygen Delivery Method Room Air Oxygen Flow Rate 0 Extrem Other: left leg in walking boot. Neurovascularly intact. Objective Labs 07/05/22 04:35 07/05/22 04:35 Labs: Laboratory Results - last 24 hr 07/04/22 07/05/22 07/05/22 08:18 04:35 04:35 WBC 7.4 RBC 4.95 Hgb 14.9 Hct 43.8 MCV 88.3 MCH 30.1 MCHC 34.1 RDW 13.7 Plt Count 201 Neut % (Auto) 75.1 H Lymph % (Auto) 17.0 L [place] % (Auto) 7.0 Eos % (Auto) 0.2 L Baso % (Auto) 0.7 Neut # (Auto) 5600 Lymph # (Auto) 1300 [place] # (Auto) 500 Eos # (Auto) 0 Baso # (Auto) 100 Sodium 131 L Potassium 3.4 Chloride 101 Carbon Dioxide 26 BUN 5 L Creatinine 0.43 L Estimated GFR > 60 BUN/Creatinine Ratio 11.6 Glucose 113 H Calcium 8.6 Urine Color Yellow Urine Appearance Clear Urine pH 6.5 Ur Specific [place] 1.015 Urine Protein Negative Urine Glucose (UA) Negative Urine Ketones 2+ H Urine Occult Blood Trace-intact Urine Nitrate Negative Urine Bilirubin Negative Urine Urobilinogen 0.2 Ur Leukocyte Esterase Negative Urine RBC 0-1/hpf Urine WBC 0-1/hpf Ur Squamous Epith Cells 0-1 /hpf Urine Bacteria Occasional (0-1) Ur Culture Indicated? Cult not indicated PFSH Medical History Abdominal wall hernia (Unknown) Asthma (Unknown) Fractures (~1997) Grief Heart murmur (1953) Hemorrhoids (Unknown) Measles (1953) Migraines (Unknown) Osteopenia (~2006) Osteoporosis (~1999) Physician orders for life-sustaining treatment (POLST) form indicates patient wish for [id number] status Pure hypercholesterolemia Rheumatic fever (1953) Stress Surgical History History of tonsillectomy (1949) Soft tissue injury of wrist (11/1980) Status post tubal ligation (1968) Family History Father Diabetes mellitus Mother No problems noted. Brother Cancer Family/Other No problems noted. Grandfather No problems noted. Grandmother No problems noted. Grandfather No problems noted. Grandmother No problems noted. Social History household members: none Tobacco & Substance Use Smoking Status: Never smoker alcohol intake: current Assessment & Plan Assessment & Plan narrative: 77 yo F with left distal fibula fx and multiple distal metatarsal fracture. She can WBAT to LLE. I will have patient f/u with my office this week for repeat x-ray. If her fracture displaces further, she may need surgery. I discussed the plan with her. Patient understands and agrees with the plan.
--- NOTE | 2022-07-05 13:19 | P.PN_ITS ---
Subjective Subjective Interval history: 77-year-old female with osteopenia / osteoporosis, asthma, hyperlipidemia, remote rheumatic fever who was admitted with? a mildly displaced distal left fibular fracture and metatarsal neck fractures of the 3rd, 4th, and likely 2nd and 5th ? Metatarsals of the left foot. she was admitted for evaluation for orthopedic surgery as well as therapy assessments. Patient reports she is not having any pain while her leg is in the walking boot and she is not moving. She notes she is not had a bowel movement since admission and is concerned about constipation. She reports she is been urinating well and has been drinking fluids better overall. Exam Vital Signs (past 8 hours): Oxygen Delivery Method Room Air Oxygen Flow Rate 0 Narrative Exam Narrative: GEN: Very pleasant elderly female,Alert and oriented x 3, NAD HEENT:NC, Face symmetric CHEST: Respiratory excursions symmetric, CTAB CV: RRR, no M/R/G ABD: Soft, NT/ND, BT present in all 4 quadrants, no organomegaly or masses EXTR: warm, well perfused, no C/C/E, left lower extremity is in a walking boot, no swelling to the foot/toes SKIN: warm and dry, no rash NEURO: Alert and oriented x 3, nonfocal Objective Labs 07/05/22 04:35 07/05/22 04:35 Labs: Laboratory Results - last 24 hr 07/05/22 07/05/22 04:35 04:35 WBC 7.4 RBC 4.95 Hgb 14.9 Hct 43.8 MCV 88.3 MCH 30.1 MCHC 34.1 RDW 13.7 Plt Count 201 Neut % (Auto) 75.1 H Lymph % (Auto) 17.0 L [place] % (Auto) 7.0 Eos % (Auto) 0.2 L Baso % (Auto) 0.7 Neut # (Auto) 5600 Lymph # (Auto) 1300 [place] # (Auto) 500 Eos # (Auto) 0 Baso # (Auto) 100 Sodium 131 L Potassium 3.4 Chloride 101 Carbon Dioxide 26 BUN 5 L Creatinine 0.43 L Estimated GFR > 60 BUN/Creatinine Ratio 11.6 Glucose 113 H Calcium 8.6 PFSH Medical History Abdominal wall hernia (Unknown) Asthma (Unknown) Fractures (~1997) Grief Heart murmur (1953) Hemorrhoids (Unknown) Measles (1953) Migraines (Unknown) Osteopenia (~2006) Osteoporosis (~1999) Physician orders for life-sustaining treatment (POLST) form indicates patient wish for [id number] status Pure hypercholesterolemia Rheumatic fever (1953) Stress Surgical History History of tonsillectomy (1949) Soft tissue injury of wrist (11/1980) Status post tubal ligation (1968) Family History Father Diabetes mellitus Mother No problems noted. Brother Cancer Family/Other No problems noted. Grandfather No problems noted. Grandmother No problems noted. Grandfather No problems noted. Grandmother No problems noted. Social History household members: none Smoking Status: Never smoker alcohol intake: current Assessment & Plan Assessment & Plan narrative: 1.? Left fibular and left foot metatarsal fractures after ground level fall ?PT evaluation done yesterday with recommendation for SNF rehab versus home.? ? Patient was admitted under observation status and can not privately pay for?SNF placement.? Social work consultation was performed and patient can go home with family and friend (who is flying in late this evening) to assist as well as home health services.? Dr. Diez, orthopedic surgery, consulted and advised that the patient can weightbear as tolerated with the boot in place. He recommends she contact the orthopedic office after the holiday weekend to obtain a follow-up appointment for the following week. He notes if she has ongoing displacement of the fibular fracture, she may need operative intervention. ? 2. Ground level fall secondary to gait instability Will benefit from home health PT and OT to improve her strength and stability 3. Hypertension Patient does not take any regularly scheduled medications. Systolic pressures have been in the 170s to 180s overnight. She is receptive to using IV push medication as needed. 4. Complicated grief reaction patient is tearful today and states her 's last summer has brought up grief related to her daughter's at the age of 15 and other past traumas. We did discuss that her anxiety and perhaps underlying depression is contributing to her hypertension and her overall struggles with feeling overwhelmed right now. She is receptive to starting medication to assist with her moods and anxiety. Will initiate citalopram. 4. Osteopenia versus osteoporosis ? Will need outpatient DEXA scan. 5. Asthma ? No regular medications prescribed.? No exacerbation. code status ?DNR DNI prophylaxis ?Lovenox disposition ?? Home on 07/06/2022 with [employer].
--- NOTE | 2022-07-05 14:13 | PT.IPTN ---
Physical Therapy Treatment Note M2 PT-IP Current Condition Start: 07/04/22 11:03 Freq: NEEDED Status: Active Protocol: Document 07/04/22 10:10 AB (Rec: 07/04/22 11:17 AB [id number]) Physical Therapy Current Condition Current Condition Evaluation Date 07/04/22 Treatment Diagnosis L distal fibular fx; L metatarsal fx; difficulty in walking Onset Date 07/04/22 M3 PT-IP Subjective Start: 07/04/22 11:03 Freq: NEEDED Status: Active Protocol: Document 07/05/22 13:41 LJ (Rec: 07/05/22 14:13 LJ [id number]) Subjective Physical Therapy Visit Type Type Treatment Note Visit Start Time 13:04 Visit Stop Time 13:29 Total Visit Minutes 25 Notes Friend in room with pt. Friend lives in town and states she is able to stay overnight with pt when she goes home. Available to assist pt during the day and any other time pt might call her. Number of RADIOLOGY MANAGER Visits 1 Physical Therapy Visit Comments Patient Comments Agreeable to do PT. Pain has decreased. Therapy Pain Assessment Pain When Pain Assessed At Rest M4 PT-IP Mobility and Gait Start: 07/04/22 11:03 Freq: NEEDED Status: Active Protocol: Document 07/05/22 13:41 LJ (Rec: 07/05/22 14:13 LJ [id number]) PT-Bed Mobility Assessment Supine to Sit Supine to Sit Standby Assistance PT-Transfer Assessment Sit to and From Stand Sit to and from Stand Contact Guard Assistance,1 Person Assistance,Use of Upper Extremities Equipment Transfer Assistive Device Gait Belt,Front Wheeled Walker Orthotic/Prosthetic Devices or Brace: Yes Transfers Transfer Destination Bed,Chair Transfer Technique stand pivot, stand step pivot, ambulated Transfer Ability Level of Assist Contact Guard Assistance,Use of Upper Extremities Comments Mobility Comments Pt transfering from bed to chair ~2' using stand pivot method CGA. Stood from chair then used hop method while weightbearing onto UEs to transfer back to bed CGA. Hospitalist entered room and stated new orders for WBAT. Pt transfered from bed to chair stand step pivot CGA. Pt then stood from chair and ambulated around foot of bed CGA putting heel of left foot on floor to progress right foot forward. Pt stated no pain with heel on floor. She then ambulated back to chair where she was left in SHOOTER'S HELPER care. Gait Assessment Gait Gait Assistance Required: Contact Guard Assist Distance (Feet) 25 Able to Maintain Weight Bearing Status Yes During Gait Assistive Devices Assistive Device Gait Belt,Front Wheeled Walker Orthotic/Prosthetic Devices or Brace: Yes Gait Deviations General Gait Pattern Step-to Gait Factors Limiting Gait Function Factors Limiting Gait Function Decreased Activity Tolerance, Decreased Sensation,Decreased Strength,Incoordination, Limited Range of Motion,Pain, Poor Balance,Poor Safety Awareness Comments Gait Comments see mobility section M5 PT-IP Objective Assessments Start: 07/04/22 11:03 Freq: NEEDED Status: Active Protocol: Document 07/04/22 10:10 AB (Rec: 07/04/22 11:17 AB [email or web address]) Orientation Orientation/Cognition Level of Alertness Alert Orientation Name,Place,Situation Safety Awareness Decreased Safety Awareness Memory Description Short Term Impaired Gross Range of Motion Lower Extremity ROM Assessment Within Functional Limits Impairments L ankle NT Strength Lower Extremity Strength Assessment Left Impaired Knee 3+/5 Ankle NT Sensation Assessment Sensation Gross Sensation WNL Muscle Tone Muscle Tone WNL Yes M6 PT-IP Treatment Start: 07/04/22 11:03 Freq: NEEDED Status: Active Protocol: Document 07/05/22 13:41 FARHAN (Rec: 07/05/22 14:13 LJ [id number]) Physical Therapy Treatment Education Education Provided Precautions,Weight Bearing Status,Safety M7 PT-IP Assessment and Plan Start: 07/04/22 11:03 Freq: NEEDED Status: Active Protocol: Document 07/05/22 13:41 FARHAN (Rec: 07/05/22 14:13 LJ [id number]) PT Summary Assessment and Plan Potential Rehabilitation Potential Good Status of Condition at Evaluation Evolving Summary Impairments Pain,ROM,Strength,Balance, Coordination,Sensation,Tone, Cognition,Bed Mobility, Transfers,Gait,Activity Tolerance Assessment Summary Pt improved with tierra pineda able to ambulate with WBAT. Her DC plans are solidifying for safe DC home with son, friend, homehealth, and all equipment for mobility available at home. Pt has met transfer and gait goals. Progress gait distance as tolerated for return home to be able to access all rooms in home as needed. Goals Bed Mobility Goal Independent Transfer Goal Minimal Assistance,Front Wheeled Walker Gait Goal Minimal Assistance,Front Wheel Walker Gait Distance 25 Other Goals improve transfers using FWW SBA, ambulation using FWW 40 ft SBA Days to Meet Goals 10 Frequency of Treatment Frequency Of Treatment Once a Day Treatment Plan Physical Therapy Treatment Plan Bed Mobility Training,Transfer Training,Gait Training, Therapeutic Exercise,Balance Retraining,Discharge Planning, Hot or Cold Pack,Neuromuscular Re-ed,Coordination Retraining ,Manual Therapy Precautions Brace L walker boot Other Precautions falls Weight Bearing Status Weight Bearing Status Weight Bear as Tolerated Recommendations To Nursing Amount of Assist Needed 1 Person Assist Discharge Recommendations PT Discharge Recommendations Home with Assistance,Home with / Assist Available
[2022-07-05] MEDS: CITALOPRAM 10 MG TABLET 20 MG PO (14:26)
[2022-07-05] MEDS: HYDRALAZINE 20 MG/ML VIAL 5 MG IV (14:30)
[2022-07-06] VITALS: BP 167/91; PULSE 90; RESP 20; TEMP 36.6; O2SAT 96
[2022-07-06 05:21] LABS: Add Manual Diff / Slide Review NO; Basophils Absolute Auto 100 /uL (0-100); Basophils Percent Auto 0.8 % (0-2); Eosinophils Absolute Auto 0 /uL (0-450); Eosinophils Percent Auto 0.5 % (2-4); Hematocrit 43.9 % (36-46); Lymphocytes Absolute Auto 1000 /uL (1100-4500); Lymphocytes Percent Auto 15.5 % (25-40); Mean Corpuscular HGB Conc 34.3 % (30-36); Mean Corpuscular Hemoglobin 30.2 PG (26-34); Mean Corpuscular Volume 88.1 fL (80-100); Monocytes Absolute Auto 400 /uL (0-900); Monocytes Percent Auto 6.5 % (3-14); Neutrophils Absolute Auto 4900 /uL (1500-7000); Neutrophils Percent Auto 76.7 % (50-75); Platelet Count 208 X10^3/uL (150-400); Red Blood Cell Count 4.98 X10^6/uL (4.0-5.2); White Blood Cell Count 6.4 X10^3/uL (4.5-11.0)
[2022-07-06 05:31] LABS: BUN Creatinine Ratio 22.9 (6-22); Blood Urea Nitrogen 11 mg/dL (7-17); Calcium 8.5 mg/dL (8.4-10.2); Carbon Dioxide 25 mmol/L (22-32); Chloride 100 mmol/L (98-107); Estimated Glomerular Filt Rate > 60 mL/min (>60); Glucose 114 mg/dL (80-110); HEMOLYSIS < 15 (0-50); Potassium 3.7 mmol/L (3.4-5.1); Sodium 131 mmol/L (137-145)
[2022-07-06 06:00] VITALS: BP 168/91; PULSE 90; RESP 18; TEMP 37; O2SAT 97
[2022-07-06] MEDS: CITALOPRAM 10 MG TABLET 20 MG PO (09:06)
[2022-07-06] MEDS: ENOXAPARIN 40 MG/0.4 ML SYRINGE SUBCUT (09:07)
[2022-07-06] MEDS: HYDROCODONE/ACET 5/325 TABLET 1 TAB PO ×2 (09:09→12:29)
--- NOTE | 2022-07-06 09:15 | PT.IPTN ---
Physical Therapy Treatment Note M2 PT-IP Current Condition Start: 07/04/22 11:03 Freq: NEEDED Status: Active Protocol: Document 07/04/22 10:10 AB (Rec: 07/04/22 11:17 AB [id number]) Physical Therapy Current Condition Current Condition Evaluation Date 07/04/22 Treatment Diagnosis L distal fibular fx; L metatarsal fx; difficulty in walking Onset Date 07/04/22 M3 PT-IP Subjective Start: 07/04/22 11:03 Freq: NEEDED Status: Active Protocol: Document 07/06/22 09:56 TS (Rec: 07/06/22 10:17 TS [id number]) Subjective Physical Therapy Visit Type Type Treatment Note Visit Start Time 09:15 Visit Stop Time 09:46 Total Visit Minutes 31 Number of PRINCIPAL LAW CLERK Visits 2 Physical Therapy Visit Comments Patient Comments Pt reports cousin is coming into town tonight or tomorrow to stay with her, friend in town will be staying with her for time being during the day. She reports some increased pain this morning requiring pain meds, agreeable to PT. Therapy Pain Assessment Pain When Pain Assessed At Rest Pain Present Pain Present Pain Reported M4 PT-IP Mobility and Gait Start: 07/04/22 11:03 Freq: NEEDED Status: Active Protocol: Document 07/06/22 09:56 TS (Rec: 07/06/22 10:17 TS [id number]) PT-Bed Mobility Assessment Supine to Sit Supine to Sit Independent Scooting Scooting to Edge of Bed Independent PT-Transfer Assessment Sit to and From Stand Sit to and from Stand Contact Guard Assistance,1 Person Assistance,Use of Upper Extremities Equipment Transfer Assistive Device Gait Belt,Front Wheeled Walker Orthotic/Prosthetic Devices or Brace: Yes Comments Mobility Comments Pt found resting in bed with boot donned, agreeable to PT. Supine to sit Ind, HOB elevated 15D with BUE suppport . She scooted to EOB Ind with BUE support, cues for feet flat on floor. Sit to stand x1 CGA with increased effort, flexed posture and heavy use of UEs. She ambulated in room ~60' SBA with FWW, demonstrated good balance and management of FWW, no c/o pain . Stand to sit SBA with FWW, provided cues for BUE support on arms of chair for slow eccentric control. Pt was left in room with call light nearby, tray table and all needs met, RN notified. Gait Assessment Gait Gait Assistance Required: Standby Assistance Distance (Feet) 60 Able to Maintain Weight Bearing Status Yes During Gait Assistive Devices Assistive Device Gait Belt,Front Wheeled Walker Orthotic/Prosthetic Devices or Brace: Yes Gait Deviations General Gait Pattern Step-to Gait Factors Limiting Gait Function Factors Limiting Gait Function Decreased Activity Tolerance, Decreased Sensation,Decreased Strength,Incoordination, Limited Range of Motion,Pain, Poor Balance,Poor Safety Awareness Comments Gait Comments see mobility section Stair Climbing Assessment Comments Stair Climbing Comments Has w/c ramp at home. PT-Balance Assessment Sitting Balance and Reactions Static Sitting Balance Ability Normal Dynamic Sitting Balance Ability Good Standing Balance and Reactions Static Standing Balance Ability Good Dynamic Standing Balance Ability Fair Device Used FWW Comments Other Balance Tests/Deviations/Treatment No buckling or LOB noted. : M5 PT-IP Objective Assessments Start: 07/04/22 11:03 Freq: NEEDED Status: Active Protocol: Document 07/04/22 10:10 AB (Rec: 07/04/22 11:17 AB [id number]) Orientation Orientation/Cognition Level of Alertness Alert Orientation Name,Place,Situation Safety Awareness Decreased Safety Awareness Memory Description Short Term Impaired Gross Range of Motion Lower Extremity ROM Assessment Within Functional Limits Impairments L ankle NT Strength Lower Extremity Strength Assessment Left Impaired Knee 3+/5 Ankle NT Sensation Assessment Sensation Gross Sensation WNL Muscle Tone Muscle Tone WNL Yes M6 PT-IP Treatment Start: 07/04/22 11:03 Freq: NEEDED Status: Active Protocol: Document 07/06/22 09:56 TS (Rec: 07/06/22 10:17 [id number]) Physical Therapy Treatment Education Education Provided Precautions,Weight Bearing Status,Safety Other Treatments Other Treatment Performed Educated pt on wbering status of WBAT. M7 PT-IP Assessment and Plan Start: 07/04/22 11:03 Freq: NEEDED Status: Active Protocol: Document 07/06/22 09:56 TS (Rec: 07/06/22 10:17 TS [id number]) PT Summary Assessment and Plan Potential Rehabilitation Potential Good Summary Impairments Pain,ROM,Strength,Balance, Coordination,Sensation,Tone, Cognition,Bed Mobility, Transfers,Gait,Activity Tolerance Assessment Summary Pt continues to progress in her mobility. She is Ind for supine to sit and for scooting to EOB. She continues to require CGA and increased effort for sit to stands. She progressed her gait to ~60' in room, no buckling or LOB and no c/o increased pain. PT recommends home with 24/7 assist available and HH. Goals Bed Mobility Goal Independent Transfer Goal Minimal Assistance,Front Wheeled Walker Gait Goal Minimal Assistance,Front Wheel Walker Gait Distance 25 Other Goals improve transfers using FWW SBA, ambulation using FWW 40 ft SBA Days to Meet Goals 10 Frequency of Treatment Frequency Of Treatment Once a Day Treatment Plan Physical Therapy Treatment Plan Bed Mobility Training,Transfer Training,Gait Training, Therapeutic Exercise,Balance Retraining,Discharge Planning, Hot or Cold Pack,Neuromuscular Re-ed,Coordination Retraining ,Manual Therapy Precautions Brace L walker boot Other Precautions falls Weight Bearing Status Weight Bearing Status Weight Bear as Tolerated Recommendations To Nursing Amount of Assist Needed Standby Assistance,1 Person Assist Discharge Recommendations PT Discharge Recommendations Home with Assistance,Home with 24/7 Assist Available,Home Health Equipment Needed for Home Before Pt has W/C and commode at home Discharge . Transportation Needs at Discharge Wheelchair/Cabulance
--- NOTE | 2022-07-06 10:07 | P.DS_ITS ---
History of Present Illness History of Present Illness Date Patient Seen: 07/06/22 Time Patient Seen: 10:07 Chief complaint: Left Fibula fx, metatarsal fx's x 2 left foot Narrative: Per admitting provider, Nargis Acevedo is a 77-year-old female with medical history osteopenia/osteoporosis, takes no medications, presented to the ED this morning after developing left foot swelling and knee pain that started about 24 hours ago and continued to worsen causing her to present to the ED. patient states she may have fallen going to the bathroom a few days ago but denies any real trauma or injury. On admit patient denies chest pain, shortness in breath, headache, changes in vision, difficulty swallowing, speech impairment, numbness, tingling, head injury, LOC, fever, body aches, chills, cough, recent exposure to illness, abdominal pain, nausea, vomiting, urinary incontinence/retention, dysuria, frequency, urgency, hematuria, bowel changes, constipation, incontinence, melena, rashes, recent changes to medication, illness, injury, or trauma. Patient presented to the ED with hypertensive urgency 210/96, 180/90, initial labs CBC/CMP are unremarkable. Patient does have bruising and swelling to the left foot and left ankle.? X-ray show a distal fibula fracture.? She also has fractures of the lateral distal metatarsals.? Her left knee x-ray is unremarkable.? Given the fact that she does have metatarsal fracture she does need to be nonweightbearing.? Patient was unable to stand at bedside secondary to discomfort.? She was unable to use crutches because of weakness and discomfort as well.? Patient is also extremely emotional and anxious, lost her last fall. Admitted for observation and evaluation by Ortho. Discharge Providers Provider Date of admission: 07/04/22 04:54 Discharge Date: 07/06/22 Primary care physician: Mckinley Isaac DO Consults: 07/04/22 05:20 Consult to Dietitian, Adult Routine Comment: Reason For Exam: BMI 20.3 Consult to Occupational Therapy Evaluate & Treat Comment: Physician Instructions: Evaluate and treat Consult to Physical Therapy Evaluate & Treat Comment: Physician Instructions: Evaluate and Treat Consult to Physician Routine Comment: Consulting Provider: Zeyad Perez Reason for consultation: Lft fibula fx, lt metatarsal fx's x2 Has provider been notified: No 07/04/22 06:27 Consult to Front Desk Supervisor Routine Comment: Patient will require assistance with d/c planning 07/04/22 06:28 Consult to CORRECTIONAL PROBATION OFFICER - Front Desk Supervisor Routine Comment: CORRECTIONAL PROBATION OFFICER Consult needed for:: Behavioral Health Assess Community Health Res Need Social Determinants issue Consult to Pastoral Services Routine Comment: Grief from passing of spouse last fall 07/04/22 14:29 Consult to Home Health Routine Comment: Reason For Exam: home health upon discharge Discharge provider: Hu Guillen DO Summary Hospital Course Discharge Diagnosis: 1.? Left fibular and left foot metatarsal fractures after ground level fall, pathologic secondary to osteoporosis given nature of her fall 2. Ground level fall secondary to gait instability 3. Hypertension 4.? ? Complicated grief reaction 4. Osteopenia versus osteoporosis 5. Asthma Hospital Course: 77F with PMH of HTN, mild intermittent asthma admitted with a L fibular and metatarsal fractures after a ground level fall. She initially had difficulty ambulating but improved with PT/OT and pain control. She continued to have difficulty with depression, anxiety after her 's and was started on citalopram for complicated grief reaction. Her blood pressures were elevated, but given acute fracture and grief reaction and no overt symptoms anti hypertensive therapy is not recommended. Though she should continue to check BP at home and follow up with her PCP. She was discharged home with home health after patient was able to arrange family / friends to stay with her at home. Time Spent with Patient Time spent: Greater than 30 minutes Exam Vital Signs (past 8 hours): - 07/06/22 06:00 Temperature 98.6 F Pulse Rate 90 Respiratory Rate 18 Blood Pressure 168/91 H Pulse Oximetry 97 Oxygen Flow Rate 0 Oxygen Delivery Method Room Air Oxygen Flow Rate 0 Narrative Exam Narrative: GEN: Very pleasant elderly female,Alert and oriented x 3, NAD HEENT:NC, Face symmetric CHEST: Respiratory excursions symmetric, CTAB CV: RRR, no M/R/G ABD: Soft, NT/ND, BT present in all 4 quadrants, no organomegaly or masses EXTR: warm, well perfused, no C/C/E, left lower extremity is in a walking boot, no swelling to the foot/toes SKIN: warm and dry, no rash NEURO: Alert and oriented x 3, nonfocal Objective Labs 07/06/22 04:50 07/06/22 04:50 Labs: Laboratory Results - last 24 hr 07/06/22 07/06/22 04:50 04:50 WBC 6.4 RBC 4.98 Hgb 15.0 Hct 43.9 MCV 88.1 MCH 30.2 MCHC 34.3 RDW 14.0 Plt Count 208 Neut % (Auto) 76.7 H Lymph % (Auto) 15.5 L Mcculloch % (Auto) 6.5 Eos % (Auto) 0.5 L Baso % (Auto) 0.8 Neut # (Auto) 4900 Lymph # (Auto) 1000 L Mcculloch # (Auto) 400 Eos # (Auto) 0 Baso # (Auto) 100 Sodium 131 L Potassium 3.7 Chloride 100 Carbon Dioxide 25 BUN 11 Creatinine 0.48 L Estimated GFR > 60 BUN/Creatinine Ratio 22.9 H Glucose 114 H Calcium 8.5 PFSH Medical History Abdominal wall hernia (Unknown) Asthma (Unknown) Fractures (~1997) Grief Heart murmur (1953) Hemorrhoids (Unknown) Measles (1953) Migraines (Unknown) Osteopenia (~2006) Osteoporosis (~1999) Physician orders for life-sustaining treatment (POLST) form indicates patient wish for [id number] status Pure hypercholesterolemia Rheumatic fever (1953) Stress Surgical History History of tonsillectomy (1949) Soft tissue injury of wrist (11/1980) Status post tubal ligation (1968) Family History Father Diabetes mellitus Mother No problems noted. Brother Cancer Family/Other No problems noted. Grandfather No problems noted. Grandmother No problems noted. Grandfather No problems noted. Grandmother No problems noted. Social History household members: none Smoking Status: Never smoker alcohol intake: current Discharge Plan Discharge Plan Patient Disposition: Home Health Service Transfer to: Home Health, Other Provider Discharge Comment: You fractures your left fibula (leg bone) and 4 toe bones. You need to wear the walking boot whenever you are out of bed. You may weight bear as tolerated. Please contact [facility] orthopedics during business hours and schedule a follow-up appointment for recheck next week. You may use Tylenol or the hydrocodone as needed for pain. If you do take the hydrocodone, please add senna twice a day to prevent constipation. Due to your complicated grief, anxiety, and overwhelming emotions right now, we have started citalopram 20 mg daily. This will help with your anxiety, sadness, and help you manage your emotions more effectively. Please reach out to the clinical resource coordinator at your 's hospice agency to get additional grief support. Return to the ED: Recurrent falls uncontrolled pain fevers, increased leg swelling, or inability to hold down food or fluids Discharge orders & Medications Prescriptions: New methocarbamol 500 mg Tablet 750 mg PO QID PRN (Reason: Muscle Spasm) Qty: 15 0RF acetaminophen 325 mg Tablet 650 mg PO Q6H PRN (Reason: Fever/Mild Pain (1-3)) Qty: 30 0RF citalopram 10 mg Tablet 20 mg PO DAILY Qty: 30 0RF hydrocodone-acetaminophen 5-325 mg Tablet 1 tab PO Q4H PRN (Reason: Pain, Moderate (4-10)) Qty: 30 0RF Follow up/Referrals: Mckinley Isaac, [Primary Care Provider] - Diet/Activity/Treatments Diet: Diet as Tolerated and Regular Activity: Weight bear as tolerated to Left lower extremity; wear the walking boot when out of bed, use caution w/walking and watch for fall hazards Oxygen: N/A Visit Report/Discharge Packet Stand Alone Forms: Patient Portal/API, Stroke Signs & Symptoms Discharge Data Primary Care Provider: Mckinley Isaac Attending Provider: Yen Yanez Admit Date/Time: 07/04/22 04:54
--- NOTE | 2022-07-06 10:49 | CM.DPC ---
DCP Discharge Home with HH Per MD, pt is medically stable to d/c home with family and HH today. SW called [facility] answering service (as Darci out on vacation still) and updated on pt discharge today and d/c summary to be faxed when signed and completed. Per RN, no concerns at this time and awaiting son to arrive for transport home. Per MD, pt remains tearful at times and medication prescribed to help and pt plans to re-establish for grief support. Plan: Patient to d/c home today via son POV and [facility] to follow for HH services after discharge. SHANNA Magallanes
--- NOTE | 2022-07-06 12:05 | CM.DPC ---
DCP Cont: Spoke to Jina at [facility] regarding this referral, let her know that patient is discharging home today. Will send face to face, orders, DC Summary. P: Patient is discharging home today with [facility]. Millicent Brown RN/Hydrography Teacher
--- NOTE | 2022-07-06 14:22 | PC.NURSE ---
Pt is A&OX4. VSS, afebrile on RA. She tolerates breakfast well and reports pain manageable to LLE. Boot in place. +CMS to toes. Pt is able to ambulate with PT in room and is cleared for discharge home today with home health. Her son arrives to transport patient home. She verbalizes understanding of medications, site care,complications/signs of infection, weight bearing instructions as well as need to schedule a follow up next week with [facility] orthopedics for foot. She is escorted via w/ch with all of her belongings to private vehicle with her son for discharge home today at approximately 1240.
--- NOTE | 2022-07-07 12:02 | CM.DPNOTE ---
Late entry: [facility] called Wednesday at approx 1150 to say they could Accept this patient for services. Zarina Sher CM [employer].
== END 2022-07-06 12:45 | disposition home health service (06) ==
LOC: ED 04:42 → AC 04:54
PROVIDERS: Admitting Provider Nurse Practitioner Family; Emergency Provider Emergency Medicine; PCP Family Medicine; Referring Provider Emergency Medicine; Visit Provider Nurse Practitioner Family
DX: S82.832A Other fracture of upper and lower end of left fibula, initial encounter for closed fracture (principal); S92.342A Displaced fracture of fourth metatarsal bone, left foot, initial encounter for closed fracture; S92.332A Displaced fracture of third metatarsal bone, left foot, initial encounter for closed fracture; W19.XXXA Unspecified fall, initial encounter; M81.0 Age-related osteoporosis without current pathological fracture; I16.0 Hypertensive urgency; E44.0 Moderate protein-calorie malnutrition; Z68.20 Body mass index [BMI] 20.0-20.9, adult
CPT/HCPCS: 36415; 73560; 73610; 73630; 80048; 81001; 83735; 85025; 96361; 96372; 96374; 97116; 97162; 97530; 99284; G0378; J0360; J1650

== ENCOUNTER → 2023-02-09 09:46 | Outpatient (CLI) | payer MEDICARE, SELFPAY ==
[2023-02-09 10:49] LABS: Add Manual Diff / Slide Review NO; Basophils Absolute Auto 100 /uL (0-100); Basophils Percent Auto 1.2 % (0-2); Eosinophils Absolute Auto 100 /uL (0-450); Eosinophils Percent Auto 1.5 % (2-4); Hematocrit 42.5 % (36-46); Hemoglobin 14.4 g/dL (12.0-16.0); Lymphocytes Absolute Auto 2200 /uL (1100-4500); Lymphocytes Percent Auto 31.1 % (25-40); Mean Corpuscular Hemoglobin 29.8 PG (26-34); Mean Corpuscular Volume 87.6 fL (80-100); Monocytes Absolute Auto 400 /uL (0-900); Monocytes Percent Auto 5.7 % (3-14); Neutrophils Absolute Auto 4200 /uL (1500-7000); Neutrophils Percent Auto 60.5 % (50-75); Platelet Count 240 X10^3/uL (150-400); Red Blood Cell Count 4.85 X10^6/uL (4.0-5.2); Red Cell Distribution Width 13.8 % (11.6-14.8)
[2023-02-09 11:15] LABS: BUN Creatinine Ratio 15.9 (6-22); Blood Urea Nitrogen 13 mg/dL (7-17); Calcium 9.3 mg/dL (8.4-10.2); Carbon Dioxide 26 mmol/L (22-32); Chloride 100 mmol/L (98-107); Cholesterol 194 mg/dL (140-199); Estimated Glomerular Filt Rate > 60 mL/min (>60); Glucose 175 mg/dL (80-110); HDL Cholesterol 47 mg/dL (40-60); HEMOLYSIS < 15 (0-50); LDL Cholesterol Calculated 126 mg/dL (<100); Potassium 4.2 mmol/L (3.4-5.1); Sodium 133 mmol/L (137-145); Triglycerides 106 mg/dL (35-150)
== END ==
PROVIDERS: PCP Family Medicine; Referring Provider Family Medicine; Visit Provider Family Medicine
DX: E78.00 Pure hypercholesterolemia, unspecified (principal)
CPT/HCPCS: 36415; 80048; 80061; 85025

== ENCOUNTER → 2024-01-18 06:54 | Outpatient (CLI) | payer MEDICARE, SELFPAY ==
[2024-01-18 08:12] LABS: BUN Creatinine Ratio 16.9 (6-22); Blood Urea Nitrogen 13 mg/dL (7-17); Calcium 8.9 mg/dL (8.4-10.2); Carbon Dioxide 27 mmol/L (22-32); Chloride 100 mmol/L (98-107); Cholesterol 190 mg/dL (140-199); Estimated Glomerular Filt Rate > 60 mL/min (>60); Glucose 110 mg/dL (80-110); HDL Cholesterol 49 mg/dL (40-60); HEMOLYSIS < 15 (0-50); LDL Cholesterol Calculated 114 mg/dL (<100); Potassium 4.5 mmol/L (3.4-5.1); Sodium 135 mmol/L (137-145); Triglycerides 135 mg/dL (35-150)
== END ==
PROVIDERS: PCP Family Medicine; Referring Provider Family Medicine; Visit Provider Family Medicine
DX: E78.00 Pure hypercholesterolemia, unspecified (principal)
CPT/HCPCS: 36415; 80048; 80061

== ENCOUNTER 2024-02-09 11:14 | Emergency (ER) | payer MEDICARE, SELFPAY ==
[2024-02-09 11:16] VITALS: BP 182/89; PULSE 105; RESP 18; TEMP 36.2; O2SAT 97; BMI 20.3
--- NOTE | 2024-02-09 11:20 | DI.RAD.S_ITS ---
PROCEDURE: XR WRIST RT MIN 3V INDICATIONS: fall, pain, deformity TECHNIQUE: 3 views of the wrist were acquired. COMPARISON: None. FINDINGS: Bones: Moderately impacted and displaced distal radius fracture. Mild background degenerative changes. Soft tissues: No suspicious calcifications. Soft tissue swelling is present. IMPRESSION: Distal radius fracture with moderate impaction and displacement Dictated by: Ganga Ontiveros M.D. on 02/09/2024 at 10:46 Approved by: Ganga Ontiveros M.D. on 02/09/2024 at 10:47
--- NOTE | 2024-02-09 11:25 | ED_ITS ---
HPI - General Adult General Chief complaint: Extremity Injury, Upper Stated complaint: fall, wrist injury Time Seen by Provider: 02/09/24 11:22 Source: patient Mode of arrival: Ambulatory History of Present Illness HPI narrative: Patient is a 70-year-old female. Not on anticoagulation who is here for evaluation of right wrist injury. Patient is right-hand dominant. Is here with family. Patient states she was trying to take a picture. Was fumbling with the phone and then fell backwards purulent on her right hip. Did hit her head. No loss of consciousness. Then tried to break her fall with her right wrist. Discomfort is located in the right wrist. No neck pain. He was ambulatory. Related Data Previous Rx's Medication Instructions Recorded acetaminophen 325 mg tablet 650 mg (2 x 325 mg) PO Q6H PRN 07/16/22 Fever/Mild Pain (1-3) #90 tabs hydrocodone 5 mg-acetaminophen 325 1 tab PO Q4-6H PRN pain #10 tabs 02/09/24 mg tablet Allergies Allergy/AdvReac Type Severity Reaction Status Date / Time amoxicillin Allergy Mild Rash Verified 02/09/24 11:20 neomycin Allergy Mild Rash Verified 02/09/24 11:20 Review of Systems Review of Systems Narrative: See HPI Patient History Medical History Impaired ambulation Physician orders for life-sustaining treatment (POLST) form indicates patient wish for [id number] status Pure hypercholesterolemia Stress Grief Osteopenia (~2006) Abdominal wall hernia (Unknown) Asthma (Unknown) Migraines (Unknown) Osteoporosis (~1999) Fractures (~1997) Rheumatic fever (1953) Measles (1953) Hemorrhoids (Unknown) Heart murmur (1953) Surgical History Soft tissue injury of wrist (11/1980) History of tonsillectomy (1949) Status post tubal ligation (1968) Family History Father Diabetes mellitus Mother No problems noted. Brother Cancer Family/Other No problems noted. Grandfather No problems noted. Grandmother No problems noted. Grandfather No problems noted. Grandmother No problems noted. Social History household members: none Smoking Status: Never smoker alcohol intake: current Smoking Status: Never smoker alcohol intake frequency: a few times a week Exam Initial Vital Signs Initial Vital Signs: Vital Signs Temperature 97.1 F L 02/09/24 11:16 Pulse Rate 105 H 02/09/24 11:16 Respiratory Rate 18 02/09/24 11:16 Blood Pressure 182/89 H 02/09/24 11:16 Pulse Oximetry 97 02/09/24 11:16 Oxygen Delivery Method Room Air 02/09/24 11:16 Const General: cooperative, healthy appearing and comfortable Cardio Pulses: radial pulses present on the right Skin Other: Mild bruising to the distal radial aspect of the right wrist Neuro Sensory Exam: no sensory deficits noted Extrem Other: Discomfort with palpation of the distal right wrist. Right elbow and right shoulder unremarkable. Procedures Orthopedic Splinting/Casting Injury #1: Side: right Upper Extremity Injury Location: wrist Upper Extremity Immobilizer: sugar tong splint Post splinting neuro exam: intact Post splinting vascular exam: intact Placed by: Provider Course Orders Ordered: ED Orders 02/09/24 11:20 XR wrist RT min 3V Stat Vital Signs Vital signs: Vital Signs - 8 hr 02/09/24 11:16 Temperature 97.1 F L Pulse Rate 105 H Respiratory Rate 18 Blood Pressure 182/89 H Pulse Oximetry 97 Oxygen Delivery Method Room Air Medical Decision Making Imaging Data Extremity x-ray #1: Radiologist's Impression: PROCEDURE: XR WRIST RT MIN 3V INDICATIONS: fall, pain, deformity TECHNIQUE: 3 views of the wrist were acquired. COMPARISON: None. FINDINGS: Bones: Moderately impacted and displaced distal radius fracture. Mild background degenerative changes. Soft tissues: No suspicious calcifications. Soft tissue swelling is present. IMPRESSION: Distal radius fracture with moderate impaction and displacement Discharge Plan Departure Patient Disposition: Home Clinical Impression: Fracture of wrist Instructions: DI for Wrist Fracture, How to Take Care of Your Splint Activity Restrictions/Additional Instructions: The splint that was placed today needs to be treated like a cast. You need to keep it on a keep it clean and keep it dry. Call the orthopedic department with the number provided below for a follow-up. A prescription for medications was s ent to [facility]. Return to the emergency department for new symptoms. Prescriptions: New hydrocodone-acetaminophen 5-325 mg tablet 1 tab PO Q4-6H PRN (Reason: pain) Qty: 10 0RF No Action acetaminophen 325 mg tablet 650 mg PO Q6H PRN (Reason: Fever/Mild Pain (1-3)) Qty: 90 1RF Referrals: Latonia Murphy MD [Physician] - Mckinley Isaac DO [Primary Care Provider] - Stand Alone Forms: Patient Portal/API/Survey
[2024-02-09 13:14] VITALS: BP 186/94; PULSE 102; RESP 16; O2SAT 97
== END 2024-02-09 13:16 | disposition home or self-care (01) ==
PROVIDERS: Emergency Provider Emergency Medicine; PCP Family Medicine
DX: S52.501A Unspecified fracture of the lower end of right radius, initial encounter for closed fracture (principal); W01.0XXA Fall on same level from slipping, tripping and stumbling without subsequent striking against object, initial encounter; Y93.89 Activity, other specified
CPT/HCPCS: 29105; 29125; 73110; 99283

== ENCOUNTER 2024-02-16 13:17 | Day surgery (SDC) | payer MEDICARE, SELFPAY ==
[2024-02-15 09:33] VITALS: BMI 20.3
[2024-02-16] VITALS (15 sets, daily range): BP systolic 116–190; BP diastolic 83–103; PULSE 76–93; RESP 12–21; TEMP 36.4–37.1; O2SAT 94–98; BMI 20.3
[2024-02-16] MEDS: LACTATED RINGERS 1,000 ML 42 ML IV (14:07)
[2024-02-16] MEDS: FAMOTIDINE 20 MG/2 ML VIAL IV (14:07)
--- NOTE | 2024-02-16 14:10 | PM.PREOP ---
Pre-operative Note Interval Note History & Physical reviewed/Exam performed by Physician: Yes Changes to H&P: No
--- NOTE | 2024-02-16 14:14 | P.OP_ITS ---
Operative Date/Time/Diagnoses Date of procedure: 02/16/24 Time of procedure: 14:45 Pre-op diagnosis: Intra-articular distal radius fracture, right Post-op diagnosis: same Procedure & Clinicians Procedure: Open reduction internal fixation distal radius fracture intra-articular, 2 part right CPT code 17126 Same procedure as scheduled: Yes Indications: The patient is 78-year-old right-hand dominant female that ground level fall day and sustained a displaced intra-articular distal radius fracture on the right side. She was open reduction internal fixation to restore alignment and function. The risks and benefits of the procedure have been discussed with the patient and given the opportunity to ask questions. The risks of surgery inclu de but are not limited to infection, malunion, nonunion, persistence of pain, damage to nerves and blood vessels, posttraumatic arthritis, DVT, PE, cardiopulmonary complications and . The patient expressed a thorough understanding of the risks and benefits of surgery and has elected to proceed. Consent was signed. Surgeon: Fely Galicia Click Yes if Unassisted: Yes Anesthesia Type: General, Peripheral nerve block and Local Operative Notes Findings: Displaced comminuted distal radius fracture, intra-articular, right Closure Type: primary Specimen(s): none sent Prosthetic devices, grafts, tissues, transplants, or devices: Arthrex volar locking plate right, standard. Distal locking screws and proximal shaft locking screws. Estimated Blood Loss (mL): 10 Blood products transfused: none Tourniquet time (min): 34 Procedure in detail: Patient sustained a displaced distal radius fracture was indicated for operative reduction fixation to prevent malunion and prolonged function, loss of motion, wrist arthritis. The risks benefits and alternatives to procedure were discussed at length with the patient expressed understanding. These included but were not limited to bleeding, infection, damage to nerves, prominent beth dware, pain, malunion, nonunion, blood clot, pulmonary embolism, and cardiovascular risk associated with general anesthesia. The patient was seen in the site of surgery was marked in the preoperative area. This was the right wrist. The patient was then brought to the operating room placed on the operative table in the supine position. Hand table was placed on the operative side. General anesthesia was administered. SCDs were placed on the legs and all bony prominence were padded. A well-padded brachial tourniquet was placed. A formal time-out procedure was called confirming the patient's side and site of surgery administration of preoperative antibiotics and presence of consent. All agreed. The operative extremity was prepped and draped in the standard sterile fashion. An Esmarch was used for exsanguination and the brachial tourniquet was raised to 250 mm of mercury. Standard FCR approach to the wrist was drawn in the incision made. The FCR was exposed. The sheath was opened and the tendon was retracted ulnar protect the palmar cutaneous branch of the median nerve. Floor of the FCR was opened to expose the deep muscles. The FPL was retracted ulnar and the pronator quadratus was released from the radial border and reflected ulnar to expose the distal radius and distal fracture. Fracture was disimpacted and clean. The fracture was reduced with traction flexion ulnar deviation. An 045 K-wire was advanced percutaneously from the radial styloid to the metaphysis to hold the reduction. Reduction was checked fluoroscopy and radial inclination tilt was recreated. Three hole Arthrex standard to volar locking plate was selected and positioned and provisionally fixed with K-wires. Once this was satisfactory, nonlocking 3.5 screws placed in the oblong hole and secured. Distal screws were then placed 1st with locking screws. These were placed carefully not to penetrate the dorsal cortex. Once this was completed and checked for prominence the final shaft screws were placed. The oblong hole nonlocking shaft screw was removed for prominence. Final intraoperative images were obtained reviewed demonstrating no evidence of hardware prominence. Wrist motion was checked and was full and maintained and stable DRUJ. The wound was then irrigated and closed in layers. Hemostasis was achieved and the tourniquet was released prior to closing. 3-0 Vicryl was used deep and subcutaneous and 3 O nylon in the skin. Sterile dressings with a volar splint were applied. There no immediate complications. Surgical counts were correct. The patient tolerated the procedure well was taken recovery room. Complications: none Post-operative Condition: stable Disposition: PACU Plan for aftercare: Elbow and finger range of motion permitted. 2 lb lifting restriction. Keep splint dry and intact. Follow up in 2 weeks for suture removal and placement of a removable wrist brace and initiation of hand therapy.
[2024-02-16] MEDS: CEFAZOLIN 2 GM/100 ML PREMIX 100 ML IV (14:32)
[2024-02-16] MEDS: ACETAMINOPHEN IV 1,000 MG/100 ML VIAL 400 MG IV (14:35)
--- NOTE | 2024-02-16 14:38 | SUR.OPER ---
Supine on padded OR bed, head on pillow, right arm secured on padded arm boards at <90 degrees abduction, Left arm on padded hand table under control of surgeon, legs uncrossed, safety belt at thigh, tape over blanket over lower legs.
[2024-02-16] MEDS: BUPIVACAINE 0.25% W/ EPI 30 ML VIAL 60 ML INJ (14:44)
[2024-02-16] MEDS: HYDROMORPHONE 1 MG INJ IV ×4 (15:47→16:03)
[2024-02-16] MEDS: ONDANSETRON 4 MG/2 ML INJ IV (15:47)
[2024-02-16] MEDS: OXYCODONE IR 5 MG TABLET PO (15:53)
== END 2024-02-16 18:00 | disposition home or self-care (01) ==
PROVIDERS: PCP Family Medicine; Referring Provider Orthopaedic Surgery Foot and Ankle Surgery; Visit Provider Orthopaedic Surgery Foot and Ankle Surgery
PROC: (CPT 25608; principal; 2024-02-16 16:00)
DX: S52.571A Other intraarticular fracture of lower end of right radius, initial encounter for closed fracture (principal); G89.18 Other acute postprocedural pain; W18.30XA Fall on same level, unspecified, initial encounter
CPT/HCPCS: 25608; 36415; 64450; C1713; J0131; J0690; J1100; J1171; J2405; J2704; J3010

== ENCOUNTER → 2024-12-20 07:05 | Outpatient (CLI) | payer MEDICARE, SELFPAY ==
[2024-12-20 07:45] LABS: Add Manual Diff / Slide Review NO; Hematocrit 42.2 % (36-46); Hemoglobin 14.0 g/dL (12.0-16.0); Lymphocytes Absolute Auto 2500 /uL (1100-4500); Mean Corpuscular HGB Conc 33.1 % (30-36); Mean Corpuscular Hemoglobin 28.3 PG (26-34); Mean Corpuscular Volume 85.4 fL (80-100); Platelet Count 228 X10^3/uL (150-400)
[2024-12-20 08:09] LABS: Alanine Aminotransferase 13 IU/L (<35); Albumin 3.6 g/dL (3.5-5.0); Albumin Globulin Ratio 1.2 (1.0-2.8); Alkaline Phosphatase 56 U/L (38-126); Blood Urea Nitrogen 13 mg/dL (7-17); Calcium 8.9 mg/dL (8.4-10.2); Carbon Dioxide 29 mmol/L (22-32); Chloride 103 mmol/L (98-107); Cholesterol 180 mg/dL (140-199); Estimated Glomerular Filt Rate > 60 mL/min (>60); Globulin 3.0 g/dL (1.7-4.1); Glucose 102 mg/dL (70-99); HDL Cholesterol 45 mg/dL (40-60); HEMOLYSIS < 15 (0-50); Potassium 4.6 mmol/L (3.4-5.1); Sodium 138 mmol/L (137-145); Total Protein 6.6 g/dL (6.3-8.2); Triglycerides 147 mg/dL (35-150)
== END ==
PROVIDERS: PCP Family Medicine; Referring Provider Family Medicine; Visit Provider Family Medicine
DX: I10 Essential (primary) hypertension (principal); E78.00 Pure hypercholesterolemia, unspecified
CPT/HCPCS: 36415; 80053; 80061; 85025